=== PATIENT | male | born 1995 | race Caucasian/White ===

== ENCOUNTER 2023-01-21 00:08 | Emergency (ER) | payer SELFPAY ==
[~2023-01-21] VITALS: Ht 188 cm; Wt 77.1 kg
--- NOTE | 2023-01-21 00:10 | NUR ---
PT [facility] ER BED 2
[2023-01-21 00:13] VITALS: BP 135/89
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
[2023-01-21] MEDS ORDERED: NACL 0.9% 1,000 ML IV ONE (01:00)
[2023-01-21] MEDS ORDERED: NALO4SPR NS (06:00)
[2023-01-21 06:43] VITALS: BP 121/61
--- NOTE | 2023-01-21 06:43 | NUR ---
Patient discharged with v/s stable. Written and verbal after care instructions given and explained. Patient alert, oriented and verbalized understanding of instructions. Ambulatory with steady gait. All questions addressed prior to discharge. ID band removed. Patient advised to follow up with PMD. Rx of NALOXONE given. Patient educated on indication of medication including possible reaction and side effects. Opportunity to ask questions provided and answered. DX: (1). OPIOID WITHDRAWAL TREATMENT, (2). FINDING TREATMENT FOR ADDICTION
[2023-01-22] MEDS ORDERED: NALO4SPR NS (05:20)
== END 2023-01-21 06:43 | disposition home or self-care (01) ==
LOC: MED 00:08
DX: T40.601A Poisoning by unspecified narcotics, accidental (unintentional), initial encounter (principal); Z79.899 Other long term (current) drug therapy; Y92.89 Other specified places as the place of occurrence of the external cause
CPT/HCPCS: 71045; 96360; 99285; J7030; Q0092

== ENCOUNTER 2023-01-22 01:10 | Emergency (ER) | payer SELFPAY ==
[~2023-01-22] VITALS: Ht 180.3 cm; Wt 68.0 kg
[~2023-01-22 01:10] MED LIST: NALO4SPR NS
--- NOTE | 2023-01-22 01:14 | NUR ---
PT BROUGHT TO BED 3 VIA GUILLERMINA URBANO Addendum: 01/22/23 at 0122 by YAMILE PT BROUGHT TO BED 3 VIA MELODIE URBANO
[2023-01-22 01:20] VITALS: BP 130/77
--- NOTE | 2023-01-22 01:20 | NUR ---
Note christopher in EDM - 01/22/23 at 0150 by [id number] Patient resting in bed, A/Ox4, chest rise and fall symmetrical, no s/s of distress, on monitor. COWS score- Resting Pulse Rate- Sweating- Restlessness- Pupil size- Bone or Joint aches- Runny nose or tearing- GI Upset- Tremor- Yawning- Anxiety or Irritability- Gooseflesh skin-
--- NOTE | 2023-01-22 01:20 | NUR ---
Note undone in ED - 01/22/23 at 0150 by [email or web address] Patient resting in bed, A/Ox4, chest rise and fall symmetrical, no c/o pain or s/s of distress, on monitor. CIWA score-16 NAUSEA AND VOMITING-0 TREMOR-4 PAROXYSMAL SWEATS-1 ANXIETY-4 AGITATION-5 TACTILE DISTURBANCES-1 AUDITORY DISTURBANCES-0 VISUAL DISTURBANCES-0 HEADACHE, FULLNESS IN HEAD-1 ORIENTATION AND CLOUDING OF SENSORIUM-0 Addendum: 01/22/23 at 0138 by [id number] Amendment undone in [facility] - 01/22/23 at 0150 by [id number] Patient resting in bed, A/Ox4, chest rise and fall symmetrical, no c/o pain or s/s of distress, on monitor. CIWA score-16 NAUSEA AND VOMITING-0 TREMOR-4 PAROXYSMAL SWEATS-1 ANXIETY-4 AGITATION-5 TACTILE DISTURBANCES-1 AUDITORY DISTURBANCES-0 VISUAL DISTURBANCES-0 HEADACHE, FULLNESS IN HEAD-1 ORIENTATION AND CLOUDING OF SENSORIUM-0
--- NOTE | 2023-01-22 01:21 | NUR ---
Patient resting in bed, A/Ox4, chest rise and fall symmetrical, side rail up, no s/s of distress, on monitor. COWS score-9 Resting Pulse Rate- Sweating-0 Restlessness-3 Pupil size-1 Bone or Joint aches-1 Runny nose or tearing-0 GI Upset-1 Tremor-1 Yawning-0 Anxiety or Irritability-2 Gooseflesh skin-0 Gooseflesh skin- Addendum: 01/22/23 at 0158 by [id number] Patient resting in bed, A/Ox4, chest rise and fall symmetrical, no s/s of distress, on monitor. COWS score-10 Resting Pulse Rate-1 Sweating-0 Restlessness-3 Pupil size-1 Bone or Joint aches-1 Runny nose or tearing-0 GI Upset-1 Tremor-1 Yawning-0 Anxiety or Irritability-2 Gooseflesh skin-0
[2023-01-22] MEDS ORDERED: NACL 0.9% 1,000 ML IV ONE (01:35)
[2023-01-22] MEDS ORDERED: diphenhydrAMINE 50 MG/ML VIAL IVP ONE (01:35)
[2023-01-22] MEDS ORDERED: ONDANSETRON 4 MG/2 ML VIAL IVP ONE (01:35)
[2023-01-22 02:26] LABS: BARBITURATE, URINE NEGATIVE ng/ml (NEG <=200); BENZODIAZEPINE, URINE POSITIVE ng/mL (NEG <=200); CANNABINOID, URINE POSITIVE ng/mL (NEG <=50); PHENCYCLIDINE SCREEN,URINE POSITIVE ng/mL (NEG <=25)
[2023-01-22 02:27] LABS: COCAINE, URINE NEGATIVE ng/mL (NEG <=300); OPIATE, URINE NEGATIVE ng/mL (NEG <=2000)
--- NOTE | 2023-01-22 04:51 | NUR ---
Patient resting in bed, A/Ox4, chest rise and fall symmetrical, side rail up, no c/o pain or s/s of distress, on monitor.
[2023-01-22] MEDS ORDERED: NALO4SPR NS (05:20)
--- NOTE | 2023-01-22 05:55 | NUR ---
Note undone in EDM - 01/22/23 at 0609 by [email or web address] Patient discharged with v/s stable. Written and verbal after care instructions given and explained. Patient alert, oriented and verbalized understanding of instructions. Ambulatory with steady gait. All questions addressed prior to discharge. ID band removed. Patient advised to follow up with PMD. Rx given to patient. Patient educated on indication of medication including possible reaction and side effects. Opportunity to ask questions provided and answered. Given copies of tests performed during visit. Patient is awake, alert and oriented. Ambulatory with steady gait. Refuses offer of custodial placement. Given list of available shelters in surrounding areas. Patient's toileting and food/fluid needs met. Patient's clothing weather appropriate for discharge.
--- NOTE | 2023-01-22 06:19 | NUR ---
Patient discharged with v/s stable. Written and verbal after care instructions given and explained. Patient alert, oriented and verbalized understanding of instructions. Ambulatory with steady gait. All questions addressed prior to discharge. ID band removed. Patient advised to follow up with PMD. Rx given to patient. Patient educated on indication of medication including possible reaction and side effects. Opportunity to ask questions provided and answered. Given copies of tests performed during visit. Patient is awake, alert and oriented. Ambulatory with steady gait. Refuses offer of penitentiary placement. Given list of available shelters in surrounding areas. Patient's toileting and food/fluid needs met. Patient's clothing weather appropriate for discharge.
[2023-01-22 06:20] VITALS: BP 118/65
== END 2023-01-22 06:19 | disposition home or self-care (01) ==
LOC: MED 01:10
DX: T40.601A Poisoning by unspecified narcotics, accidental (unintentional), initial encounter (principal); Z79.899 Other long term (current) drug therapy; Y92.89 Other specified places as the place of occurrence of the external cause
CPT/HCPCS: 80305; 96361; 96374; 96375; 99285; J1200; J2405; J7030